=== PATIENT | male | born 1970 | race Caucasian/White ===

== ENCOUNTER 2018-06-03 23:55 | Emergency (ER) | payer MEDICAID ==
[2018-06-04 02:15] VITALS: BP 154/76
== END 2018-06-04 02:15 | disposition home or self-care (01) ==
LOC: ER 23:55
DX: E11.40 Type 2 diabetes mellitus with diabetic neuropathy, unspecified (principal); G89.29 Other chronic pain; M79.662 Pain in left lower leg; M79.661 Pain in right lower leg; L97.519 Non-pressure chronic ulcer of other part of right foot with unspecified severity; E78.00 Pure hypercholesterolemia, unspecified; E11.621 Type 2 diabetes mellitus with foot ulcer; R10.9 Unspecified abdominal pain
CPT/HCPCS: 99283

== ENCOUNTER 2021-04-26 07:33 | Inpatient (IN) | payer MEDICAID ==
[~2021-04-26] VITALS: Ht 172.7 cm; Wt 93.0 kg
[2021-04-26 09:21] LABS: HEMATOCRIT. 31.3 % (42.0-52.0); HEMOGLOBIN. 10.9 g/dL (14.0-18.0); MEAN CORPUSCULAR HEMOGLOBIN 28.6 pg (28.0-32.0); MEAN CORPUSCULAR VOLUME 82.1 fL (80.0-94.0); MEAN PLATELET VOLUME 8.6 fl (7.4-10.4); PLATELET 256 x1000/uL (130-400); RED BLOOD CELL COUNT 3.81 mill/uL (4.7-6.1); RED CELL DISTRIBUTION WIDTH 14.5 % (11.6-14.6)
[2021-04-26 09:24] LABS: CHLORIDE 98 mEq/L (98-107)
[2021-04-26] MEDS ORDERED: ACETAMINOPHEN 325MG TABLET PO STA (10:04)
[2021-04-26 10:13] LABS: PLATELET ESTIMATE NORMAL
[2021-04-26] MEDS ORDERED: MEROPENEM 1,000 MG in SODIUM CHLORIDE 0.9% 100 ML IV ONE (10:15)
[2021-04-26] MEDS ORDERED: VANCOMYCIN 1 G PREMIX 200 ML IV ONE (10:15)
[2021-04-26 15:27] VITALS: BP 138/78
[2021-04-26 16:00] VITALS: BP 138/78
[2021-04-26] MEDS ORDERED: ACETAMINOPHEN 325MG TABLET PO PRN (16:15)
[2021-04-26] MEDS ORDERED: ONDANSETRON HCL 4MG/2ML INJ IV PRN (16:15)
[2021-04-26] MEDS ORDERED: LEVOFLOXACIN 500MG PREMIX 100 ML IV SCH (16:15)
[2021-04-26] MEDS ORDERED: LEVOFLOXACIN 750MG PREMIX 150 ML IV SCH (17:30)
[2021-04-26 20:00] VITALS: BP 134/76
[2021-04-27] VITALS: BP 128/60
[2021-04-27 04:00] VITALS: BP 126/71
[2021-04-27 07:05] LABS: BASOPHILS % 0.5 % (0.0-2.0); EOSINOPHILS % 1.2 % (0.0-5.0); HEMATOCRIT. 30.8 % (42.0-52.0); HEMOGLOBIN. 10.1 g/dL (14.0-18.0); LYMPHOCYTES % 8.8 % (20.0-50.0); MEAN CORPUSCULAR HEMOGLOBIN 27.6 pg (28.0-32.0); MEAN CORPUSCULAR VOLUME 84.2 fL (80.0-94.0); MEAN PLATELET VOLUME 8.3 fl (7.4-10.4); NEUTROPHILS % 80.5 % (40.0-76.0); PLATELET 261 x1000/uL (130-400); RED BLOOD CELL COUNT 3.66 mill/uL (4.7-6.1); RED CELL DISTRIBUTION WIDTH 14.8 % (11.6-14.6)
[2021-04-27 08:00] VITALS: BP 119/68
[2021-04-27] MEDS: HYDROCODONE/ACETAMINOPHEN 10/325MG TABLET PO PRN ×2 (09:05→21:53)
[2021-04-27 12:00] VITALS: BP 119/70
[2021-04-27 16:00] VITALS: BP 121/78
[2021-04-27] MEDS ORDERED: VANCOMYCIN 750 MG PREMIX 150 ML IV NR (17:00)
[2021-04-27 20:00] VITALS: BP 151/86
[2021-04-27] MEDS: ENOXAPARIN 40MG/0.4ML SYR SUBCUT SCH (21:44)
[2021-04-28] VITALS: BP 121/76
[2021-04-28 04:00] VITALS: BP 130/80
[2021-04-28 06:06] LABS: BASOPHILS % 0.9 % (0.0-2.0); EOSINOPHILS % 1.7 % (0.0-5.0); HEMATOCRIT. 32.8 % (42.0-52.0); HEMOGLOBIN. 10.7 g/dL (14.0-18.0); LYMPHOCYTES % 9.9 % (20.0-50.0); MEAN CORPUSCULAR HEMOGLOBIN 27.4 pg (28.0-32.0); MEAN CORPUSCULAR VOLUME 83.8 fL (80.0-94.0); MEAN PLATELET VOLUME 8.7 fl (7.4-10.4); MONOCYTES % 7.9 % (2.0-8.0); NEUTROPHILS % 79.6 % (40.0-76.0); PLATELET 300 x1000/uL (130-400); RED BLOOD CELL COUNT 3.92 mill/uL (4.7-6.1); RED CELL DISTRIBUTION WIDTH 14.9 % (11.6-14.6)
[2021-04-28 08:00] VITALS: BP 129/77
[2021-04-28 12:00] VITALS: BP 145/80
[2021-04-28 16:00] VITALS: BP 147/83
[2021-04-28] MEDS: LEVOFLOXACIN 500MG PREMIX 100 ML IV SCH (17:02)
[2021-04-28 20:00] VITALS: BP 153/77
[2021-04-28] MEDS: ENOXAPARIN 40MG/0.4ML SYR SUBCUT SCH (20:57)
[2021-04-29] VITALS: BP 134/80
[2021-04-29 04:00] VITALS: BP 136/78
[2021-04-29 06:15] LABS: BASOPHILS % 0.7 % (0.0-2.0); EOSINOPHILS % 1.7 % (0.0-5.0); HEMATOCRIT. 32.4 % (42.0-52.0); HEMOGLOBIN. 10.7 g/dL (14.0-18.0); LYMPHOCYTES % 9.8 % (20.0-50.0); MEAN CORPUSCULAR HEMOGLOBIN 27.7 pg (28.0-32.0); MEAN CORPUSCULAR VOLUME 83.7 fL (80.0-94.0); MEAN PLATELET VOLUME 8.8 fl (7.4-10.4); NEUTROPHILS % 80.8 % (40.0-76.0); PLATELET 331 x1000/uL (130-400); RED BLOOD CELL COUNT 3.87 mill/uL (4.7-6.1); RED CELL DISTRIBUTION WIDTH 15.2 % (11.6-14.6)
[2021-04-29 08:00] VITALS: BP 143/80
[2021-04-29 12:00] VITALS: BP 149/86
[2021-04-29 12:26] LABS: PHOSPHORUS 4.9 mg/dL (2.5-4.9)
[2021-04-29 16:00] VITALS: BP 153/86
[2021-04-29 17:39] LABS: HEPATITIS B SURFACE ANTIGEN NEGATIVE
[2021-04-29 20:00] VITALS: BP 157/87
[2021-04-29] MEDS: HYDROCODONE/ACETAMINOPHEN 10/325MG TABLET PO PRN (20:14)
[2021-04-29] MEDS: ENOXAPARIN 40MG/0.4ML SYR SUBCUT SCH (20:14)
[2021-04-29] MEDS ORDERED: CLONIDINE 0.1MG TABLET PO SCH (20:15)
[2021-04-29] MEDS ORDERED: VANCOMYCIN 500 MG PREMIX 100 ML IV NR (23:00)
[2021-04-30] VITALS: BP 148/70
[2021-04-30 04:00] VITALS: BP 154/89
[2021-04-30 06:30] LABS: BASOPHILS % 0.6 % (0.0-2.0); EOSINOPHILS % 2.4 % (0.0-5.0); HEMATOCRIT. 33.7 % (42.0-52.0); HEMOGLOBIN. 10.9 g/dL (14.0-18.0); LYMPHOCYTES % 9.6 % (20.0-50.0); MEAN CORPUSCULAR HEMOGLOBIN 26.9 pg (28.0-32.0); MEAN CORPUSCULAR VOLUME 83.3 fL (80.0-94.0); MEAN PLATELET VOLUME 8.4 fl (7.4-10.4); MONOCYTES % 6.9 % (2.0-8.0); NEUTROPHILS % 80.5 % (40.0-76.0); PLATELET 349 x1000/uL (130-400); RED BLOOD CELL COUNT 4.05 mill/uL (4.7-6.1); RED CELL DISTRIBUTION WIDTH 15.1 % (11.6-14.6)
[2021-04-30 08:00] VITALS: BP 178/101
[2021-04-30] MEDS ORDERED: NALOXONE HCL 0.4MG/ML VIAL IV PRN (09:30)
[2021-04-30 12:00] VITALS: BP 169/85
[2021-04-30] MEDS ORDERED: LACTULOSE 20G/30ML UDC PO NR (12:30)
[2021-04-30] MEDS: CLONIDINE 0.1MG TABLET PO PRN ×2 (13:55→21:37)
[2021-04-30] MEDS: LACTULOSE 20G/30ML UDC PO NR ×2 (13:57→20:00)
[2021-04-30 16:00] VITALS: BP 173/92
[2021-04-30] MEDS: LEVOFLOXACIN 500MG PREMIX 100 ML IV SCH (17:39)
[2021-04-30] MEDS ORDERED: NIFEDIPINE XL 60MG TAB PO SCH (18:00)
[2021-04-30 20:00] VITALS: BP_SYST 163; BP_SYST 165; BP_DIAS 84
[2021-04-30] MEDS: ENOXAPARIN 40MG/0.4ML SYR SUBCUT SCH (21:37)
[2021-05-01] VITALS: BP 149/60
[2021-05-01 04:00] VITALS: BP 102/64
[2021-05-01 06:11] LABS: BASOPHILS % 0.7 % (0.0-2.0); EOSINOPHILS % 0.7 % (0.0-5.0); HEMATOCRIT. 34.5 % (42.0-52.0); HEMOGLOBIN. 11.4 g/dL (14.0-18.0); LYMPHOCYTES % 9.9 % (20.0-50.0); MEAN CORPUSCULAR HEMOGLOBIN 27.4 pg (28.0-32.0); MEAN CORPUSCULAR VOLUME 82.8 fL (80.0-94.0); MEAN PLATELET VOLUME 8.4 fl (7.4-10.4); NEUTROPHILS % 80.7 % (40.0-76.0); PLATELET 356 x1000/uL (130-400); RED BLOOD CELL COUNT 4.17 mill/uL (4.7-6.1); RED CELL DISTRIBUTION WIDTH 15.1 % (11.6-14.6)
[2021-05-01] MEDS ORDERED: ACETAMINOPHEN 325MG TABLET PO ONE (17:45)
[2021-05-07] MEDS ORDERED: METR500T MT (13:38)
[2021-05-07] MEDS ORDERED: SULF1TAB48 MT (13:38)
== END 2021-05-01 08:53 | disposition left against medical advice (07) | DRG 720 ==
LOC: ER 07:33 → 8WST 09:59 → EDBEDREQTM 10:01 → EDBEDREQ 10:01 → ENRESERV 13:13 → 8WST 04-30 09:18
PROVIDERS: ADMIT Internal Medicine; ATTEND Internal Medicine
PROC: 5A1D70Z Performance of Urinary Filtration, Intermittent, Less than 6 Hours Per Day (ICD-10-PCS; 2021-04-29)
PROC: 0J9Q3ZZ Drainage of Right Foot Subcutaneous Tissue and Fascia, Percutaneous Approach (ICD-10-PCS; principal; 2021-04-30)
PROC: 5A1D70Z Performance of Urinary Filtration, Intermittent, Less than 6 Hours Per Day (ICD-10-PCS; 2021-05-01)
DX: A41.9 Sepsis, unspecified organism (principal); E43 Unspecified severe protein-calorie malnutrition; I12.0 Hypertensive chronic kidney disease with stage 5 chronic kidney disease or end stage renal disease; L97.519 Non-pressure chronic ulcer of other part of right foot with unspecified severity; E11.22 Type 2 diabetes mellitus with diabetic chronic kidney disease; E11.621 Type 2 diabetes mellitus with foot ulcer; D64.9 Anemia, unspecified; L03.115 Cellulitis of right lower limb; Z20.822 Contact with and (suspected) exposure to COVID-19; E78.00 Pure hypercholesterolemia, unspecified; L02.611 Cutaneous abscess of right foot; E78.5 Hyperlipidemia, unspecified; N18.6 End stage renal disease; Z99.2 Dependence on renal dialysis; Z88.0 Allergy status to penicillin; Z68.31 Body mass index [BMI] 31.0-31.9, adult; Z89.431 Acquired absence of right foot
CPT/HCPCS: 36415; 71045; 73630; 80048; 80053; 80202; 83036; 83605; 83880; 84100; 84145; 84484; 85025; 86803; 87340; 87426; 93005; 97161; 99291; A6261; C1893; J1650; J1956; J2185; J3370; J7040; J7050